=== PATIENT | male | born 1945 | race Caucasian/White ===

== ENCOUNTER 2017-09-02 07:53 | Observation (INO) | payer MEDICARE ==
[~2017-09-02] VITALS: Ht 182.9 cm; Wt 88.5 kg
[~2017-09-02 07:53] MED LIST: IPRATROPIU0.5 MG/3 M NEB; NICOTINE T21 MG/PATC TD; PREDNISONE10 MG PO; ZITHROMAX500 MG PO
--- NOTE | 2017-09-02 07:53 | NUR ---
PT TO ROOM VIA WHEELCHAIR.
--- NOTE | 2017-09-02 08:05 | NUR ---
IV INITIATED AND LABS AND BC X 1 COLLECTED. MD AT BEDSIDE. PATIENT TACHYCARDIC AT 152. SAO2 95% ON ROOM AIR. BILATERAL WHEEZES NOTED UPON AUSCULTATION. PATIENT DENIES ANY PAIN AT THIS TIME AND REPORTS PRODUCTIVE COUGH. PATIENT AWARE OF PLAN OF CARE AND WAIT TIME. CALL CEDENO WITHIN REACH.
[2017-09-02 08:29] LABS: HEMATOCRIT 44.1 % (39.0-50.0); HEMOGLOBIN 15.2 g/dl (14.0-18.0); IMMATURE GRANULOCYTES 0.1 % (0.0-1.0); MEAN CELL VOLUME 94.2 fL CALC (80.0-100.0); MEAN CORPUSCULAR HGB 32.5 pG CALC (26.0-32.0); MEAN CORPUSCULAR HGB CONC 34.5 g/L CALC (32.0-36.0); NEUT# 5.77 thou/uL (1.82-7.42); RED BLOOD COUNT 4.68 mill/uL (4.70-6.10); RED CELL DISTRI WIDTH 12.8 % (11.5-15.5)
[2017-09-02 08:39] LABS: ALBUMIN 4.8 g/dL (3.2-5.0); ALKALINE PHOSPHATASE 89 u/l (38-126); ANION GAP 21 (6-22 (CALC)); BILIRUBIN, TOTAL 0.8 mg/dL (0.0-1.4); BUN 14 mg/dL (8-23); BUN/CREATININE RATIO 23 (12-20 (CALC)); CALCIUM 9.3 mg/dL (8.4-10.2); CARBON DIOXIDE 24 mmol/l (22-30); CHLORIDE 104 mmol/l (95-108); CREATININE 0.6 mg/dL (0.7-1.3); GFR > 60 ML/MIN (>=60 (CALC)); GFR FOR AFR.AMER. > 60 ML/MIN (>=60 (CALC)); GLUCOSE 102 mg/dL (82-115); POTASSIUM 4.3 mmol/l (3.5-5.1); SGOT/AST 62 u/l (19-48); SGPT/ALT 48 u/l (11-66); SODIUM 145 mmol/l (137-146)
[2017-09-02 08:44] LABS: D-DIMER 1.04 mg/L (0.19-0.60); PROTHROMBIN TIME 10.7 SECONDS (9.0-12.5)
--- NOTE | 2017-09-02 08:45 | NUR ---
MONITORED PATIENT RESTING COMFORTBALY IN STRETCHER, REPORTS SOME RELIEF IN SOB. PATIENT SHOWING SINUS RHYTHM ON THE MONITOR WITH OCCANSIONAL PVC'S. SAO2 96% ON ROOM AIR. LIGHTS DIMMED FOR COMFORT. CALL CEDENO WITHIN REACH.
--- NOTE | 2017-09-02 08:55 | NUR ---
NOTIFIED OF ELEVATED LACTIC. AWAITING NEW ORDERS.
--- NOTE | 2017-09-02 09:20 | NUR ---
PATIENT TO BATHROOM VIA WHEELCHAIR. PATIENT TOLERATED WELL REPORTS MINIMAL SHORTNESS OF BREATH. PATIENT REQUESTED TO SIT ON SIDE OF STRETCHER. CALL CEDENO WITHIN REACH, PATIENT AWARE OF WAIT TIME.
--- NOTE | 2017-09-02 10:15 | NUR ---
SAO2 97% ON 2 L NC. MONITOR SHOWING NSR WITH PVC'S AT A RATE OF 87. PATIENT RESTING COMFORTABLY IN STRETCHER WITH HOB ELEVATED AND EYES CLOSED. PATIENT DENIES ANY NEEDS AND IS AWARE OF NEED FOR CT SCAN AND TRANSFER TO [facility] FOR SCAN. CONSENT OBTAINED. CALL CEDENO WITHIN REACH, WILL CONTINUE TO MONITOR.
--- NOTE | 2017-09-02 10:41 | NUR ---
MISBAH AT BEDSIDE, REPORT GIVEN. PATIENT TO CT VIA [place] STRETCHER IN STABLE CONDITION.
--- NOTE | 2017-09-02 14:11 | NUR ---
PATIENT RETURNED FROM CT VIA [place] STRETCHER. PATIENT REQUESTS SOMETHING TO EAT AND DRINK. MEAL TRAY ORDERED. PATIENT DENIES ANY SOB AT THIS TIME. PATIENT SHOWING SINUS RHYTHM ON THE MONITOR AT 86. PATIENT AWARE OF PLAN OF CARE AND WAIT TIME.
--- NOTE | 2017-09-02 15:10 | NUR ---
PATIENT RESTING COMFORTBALY IN STRETCHER, PATIENT DENIES ANY NEEDS AT THIS TIME. MD AT BEDSIDE TO DISCUSS RESUTLS. CALL CEDENO WITHIN REACH.
--- NOTE | 2017-09-02 16:07 | NUR ---
REPORT CALLED TO NAVYA SPANN.
--- NOTE | 2017-09-02 16:07 | NUR ---
REPORT CALLED TO NAVYA SPANN.
--- NOTE | 2017-09-02 16:40 | NUR ---
Admission Note Report Given to: MARIA INES Transported by: X Wheelchair Stretcher Transported with: X Nurse Transporter X Patent IV X O2 X Electric Plater
[2017-09-02 16:50] VITALS: BP 148/84
--- NOTE | 2017-09-02 16:50 | NUR ---
Admission Note Report Given to: MARIA INES Transported by: X Wheelchair Stretcher Transported with: X Nurse Transporter X Patent IV O2 X Title Abstractor
--- NOTE | 2017-09-02 16:50 | NUR ---
PT ARRIVED TO FLOOR VIA STRETCHER ACCOMPANIED BY NAVYA LUCIANO. PT AMBULATES INDEPENDENTLY. PT ORIENTED TO ROOM AND EQUIPMENT. PLAN OF CARE DISCUSSED. PT PROVIDED WITH IS, INSTRUCTED ON USE AND INDICATION. 1250 ML INCENTIVE VOLUME ACHIEVED, GOAL OF 2000ML SET. CALL LIGHT REVIEWED AND IN REACH. PT STATES UNDERSTANDING.
[2017-09-02 19:25] VITALS: BP 141/73
--- NOTE | 2017-09-02 19:36 | NUR ---
AT 1914-TOWER CLEANER CALLED FROM ER TO REPORT THAT PT IS ST, HR 140 W/FREQ PVC'S MEDICATED EARLY WITH LOPRESSOR, VITAL SIGNS TAKEN IN ROOM, HR 86, BP 141/73, TEMP 97.9, SPO2 96% RR IS 20 SLIGHTLY LABORED, ON 2LPM O2 VIA NC, GETS SOB ON EXERTION, INSTRUCTED TO TAKE DEEP BREATHS AND RELAX, VOICES UNDERSTANDING, WILL CONTINU TO MONITOR, CALL CEDENO AT REACH.
--- NOTE | 2017-09-02 19:42 | NUR ---
PT DENIES ANY CHEST PAIN; NITRO PASTE NOTED TO LT UPPER CHEST. SR, HR 86 PER ER MONITORING AT THIS TIME. LUNGS ARE COARSE ON AUSCULTATION WITH DIMINISHED BIBASILAR, ENCOURAGED TO CALL IF NEEDED, SITTING ON SIDE OF BED AT THIS TIME, A/O X3, CALL CEDENO AT REACH, WILL CONTINUE TO MONITOR.
[2017-09-02 20:00] VITALS: BP 142/89
--- NOTE | 2017-09-02 22:33 | NUR ---
RT IN PT ROOM ADMINISTERING A BREATHING TX. RESP ARE SLIGHTLY LABORED, SAFETY MEASURES REMAIN IN PLACE, ENCOURAGED TO CALL IF NEEDED. WILL CONTINUE TO REASSESS.
[2017-09-03 00:10] VITALS: BP 140/79
--- NOTE | 2017-09-03 00:22 | NUR ---
APPEALS WRITER IN PT ROOM DRAWING TROPONIN, PT IS TALKACTIVE, GOOD SENSE OF HUMOR, LAUGHING AND JOKING, NO DISTRESS NOTED, DENIES CHEST PAIN, WILL CONTINUE TO MONITOR. CALL CEDENO AT REACH.
--- NOTE | 2017-09-03 00:26 | NUR ---
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
--- NOTE | 2017-09-03 03:55 | NUR ---
PT SEEMS TO BE SLEEPING WITH EYES CLOSED, VOICES NO COMPLAINTS, RESP ARE UNLABORED, WILL CONTINUE TO MONITOR, CALL CEDENO AT REACH.
[2017-09-03 04:36] VITALS: BP 129/83
--- NOTE | 2017-09-03 05:37 | NUR ---
PT DENIES CHEST PAIN OR SOB, RESP ARE EVEN AND UNLABORED, ENCOURAGED TO CALL IF NEEEDED, REPORTS NO NEEDS AT THIS TIME.
--- NOTE | 2017-09-03 05:45 | NUR ---
INCOME TAX ANALYST IN PT ROOM DRAWING LAB SAMPLES.
[2017-09-03 06:41] LABS: HEMATOCRIT 43.9 % (39.0-50.0); HEMOGLOBIN 14.7 g/dl (14.0-18.0); MEAN CELL VOLUME 96.3 fL CALC (80.0-100.0); MEAN CORPUSCULAR HGB 32.2 pG CALC (26.0-32.0); MEAN CORPUSCULAR HGB CONC 33.5 g/L CALC (32.0-36.0); RED BLOOD COUNT 4.56 mill/uL (4.70-6.10); RED CELL DISTRI WIDTH 12.7 % (11.5-15.5)
[2017-09-03 06:54] LABS: ANION GAP 15 (6-22 (CALC)); BUN 10 mg/dL (8-23); BUN/CREATININE RATIO 17 (12-20 (CALC)); CALCIUM 9.2 mg/dL (8.4-10.2); CARBON DIOXIDE 31 mmol/l (22-30); CHLORIDE 100 mmol/l (95-108); CHOLESTEROL HDL RATIO 3.7 (<4.4 (CALC)); CREATININE 0.6 mg/dL (0.7-1.3); GFR > 60 ML/MIN (>=60 (CALC)); GFR FOR AFR.AMER. > 60 ML/MIN (>=60 (CALC)); GLUCOSE 148 mg/dL (82-115); HDL CHOLESTEROL 62 mg/dL (>=40); POTASSIUM 4.4 mmol/l (3.5-5.1); SODIUM 142 mmol/l (137-146); TOTAL CHOLESTEROL 234 mg/dl (0-199)
[2017-09-03 07:01] LABS: VLDL CHOLESTROL 106 mg/dl (0-38 (CALC))
[2017-09-03 07:04] LABS: TOTAL TRIGLYCERIDES 531 mg/dl (30-149)
--- NOTE | 2017-09-03 07:15 | NUR ---
BEDSIDE REPORT RECEIVED FROM NAVYA ARMANDO. PT.IS SLEEPING AT THIS TIME. CALL LIGHT IS W/IN REACH AND NO S/S OF DISTRESS AT THIS TIME
[2017-09-03 07:45] VITALS: BP 119/73
--- NOTE | 2017-09-03 09:12 | NUR ---
PT.IS SITTING UPRIGHT IN RECLINER AT THIS TIME AND HAS FINISHED EATING BREAKFAST. PT.ASSESSED AND MEDICATED ORDERS PROVIDE. LUNG SOUNDS ARE COURSE LOWER RIGHT LOBE AND ALL OTHERS ARE DIMINISHED. PT.DENIES PAIN OR SOB AT THIS TIME, REPORTS BM OVER NIGHT LAST NIGHT, PT.REPORTS NEEDING TO HAVE A SKIN CANCER REMOVED FROM RIGHT EYE. POC DISCUSSED AND PT/INSTRUCTED TO CALL IF HE NEEDS DUONEB BREATHING TREATMENTS. CALL LIGHT IS W/IN REACH AND PT.INSTRUCTED TO CALL IF ANY NEEDS ARISE.
[2017-09-03 11:06] VITALS: BP 130/83
[2017-09-03] MEDS ORDERED: IPRATROPIU0.5 MG/3 M NEB (11:45)
[2017-09-03] MEDS ORDERED: PREDNISONE10 MG PO (11:45)
[2017-09-03] MEDS ORDERED: LOPRESSOR25 MG PO (11:45)
[2017-09-03] MEDS ORDERED: DOXYCYC MONO100 M2 PO (11:45)
[2017-09-03] MEDS ORDERED: ASPIRIN ADULT L81 M2 PO (11:45)
[2017-09-03] MEDS ORDERED: NEBULIZER COMPRESSOR (11:45)
[2017-09-03] MEDS ORDERED: LIPITOR20 MG PO (13:07)
--- NOTE | 2017-09-03 13:34 | NUR ---
Spoke to pt during discharge med rec. Talked about the indication, use, and side-effects of doxycycline and baby aspirin. Pt was instrcted to wear suncreen while taking doxycycline and to report if experiencing severe diarrhea. Also, talked about the major and minor risk of bleeding.
== END 2017-09-03 13:13 | disposition home or self-care (01) ==
LOC: ED 07:53 → ED-I 15:14 → ED 15:36 → MS2 15:37
PROVIDERS: Emergency Medicine; ADMIT Internal Medicine; ATTEND Internal Medicine
DX: J44.1 Chronic obstructive pulmonary disease with (acute) exacerbation (principal); I47.9 Paroxysmal tachycardia, unspecified; F17.210 Nicotine dependence, cigarettes, uncomplicated; M19.90 Unspecified osteoarthritis, unspecified site; M48.00 Spinal stenosis, site unspecified; R06.02 Shortness of breath
CPT/HCPCS: J1650

== ENCOUNTER 2017-11-11 23:57 | Inpatient (IN) | payer MEDICARE ==
[~2017-11-11] VITALS: Ht 182.9 cm; Wt 95.8 kg
[~2017-11-11 23:57] MED LIST changes: +ASPIRIN ADULT L81 M2 PO; +DOXYCYC MONO100 M2 PO; +FLEXERIL PO; +LIPITOR20 MG PO; +LOPRESSOR25 MG PO; +LORTAB 1010 MG PO; +NEBULIZER COMPRESSOR
[2017-11-12] VITALS (20 sets, daily range): BP systolic 95–120; BP diastolic 52–88
[2017-11-12 00:44] LABS: HEMATOCRIT 44.3 % (39.0-50.0); HEMOGLOBIN 14.4 g/dl (14.0-18.0); IMMATURE GRANULOCYTES 0.2 % (0.0-1.0); MEAN CELL VOLUME 94.7 fL CALC (80.0-100.0); MEAN CORPUSCULAR HGB 30.8 pG CALC (26.0-32.0); MEAN CORPUSCULAR HGB CONC 32.5 g/L CALC (32.0-36.0); NEUT# 5.61 thou/uL (1.82-7.42); RED BLOOD COUNT 4.68 mill/uL (4.70-6.10); RED CELL DISTRI WIDTH 13.3 % (11.5-15.5)
[2017-11-12 00:53] LABS: ANION GAP 16 (6-22 (CALC)); BUN 14 mg/dL (8-23); BUN/CREATININE RATIO 17 (12-20 (CALC)); CARBON DIOXIDE 26 mmol/l (22-30); CHLORIDE 104 mmol/l (95-108); CREATININE 0.8 mg/dL (0.7-1.3); GFR > 60 ML/MIN (>=60 (CALC)); GFR FOR AFR.AMER. > 60 ML/MIN (>=60 (CALC)); SODIUM 142 mmol/l (137-146)
[2017-11-12 01:23] LABS: TSH, 3RD GENERATION 6.17 uIU/mL (0.47 - 4.68)
[2017-11-12 01:33] LABS: INFLUENZA A NONE DETECTED (NONE DETECT); INFLUENZA B NONE DETECTED (NONE DETECT)
[2017-11-13] VITALS (13 sets, daily range): BP systolic 94–140; BP diastolic 51–76
[2017-11-13 05:35] LABS: HEMATOCRIT 44.8 % (39.0-50.0); HEMOGLOBIN 14.4 g/dl (14.0-18.0); MEAN CELL VOLUME 96.1 fL CALC (80.0-100.0); MEAN CORPUSCULAR HGB 30.9 pG CALC (26.0-32.0); MEAN CORPUSCULAR HGB CONC 32.1 g/L CALC (32.0-36.0); RED BLOOD COUNT 4.66 mill/uL (4.70-6.10); RED CELL DISTRI WIDTH 13.5 % (11.5-15.5)
[2017-11-13 06:08] LABS: ANION GAP 24 (6-22 (CALC)); BUN 18 mg/dL (8-23); BUN/CREATININE RATIO 24 (12-20 (CALC)); CARBON DIOXIDE 20 mmol/l (22-30); CHLORIDE 105 mmol/l (95-108); CREATININE 0.7 mg/dL (0.7-1.3); GFR > 60 ML/MIN (>=60 (CALC)); GFR FOR AFR.AMER. > 60 ML/MIN (>=60 (CALC)); POTASSIUM 4.2 mmol/l (3.5-5.1); SODIUM 144 mmol/l (137-146)
[2017-11-14] VITALS (8 sets, daily range): BP systolic 90–119; BP diastolic 42–80
[2017-11-14 05:41] LABS: HEMATOCRIT 42.6 % (39.0-50.0); HEMOGLOBIN 13.7 g/dl (14.0-18.0); MEAN CELL VOLUME 97.5 fL CALC (80.0-100.0); MEAN CORPUSCULAR HGB 31.4 pG CALC (26.0-32.0); MEAN CORPUSCULAR HGB CONC 32.2 g/L CALC (32.0-36.0); RED BLOOD COUNT 4.37 mill/uL (4.70-6.10); RED CELL DISTRI WIDTH 13.6 % (11.5-15.5)
[2017-11-14 06:02] LABS: ANION GAP 19 (6-22 (CALC)); BUN 19 mg/dL (8-23); BUN/CREATININE RATIO 24 (12-20 (CALC)); CARBON DIOXIDE 25 mmol/l (22-30); CHLORIDE 104 mmol/l (95-108); CREATININE 0.8 mg/dL (0.7-1.3); GFR > 60 ML/MIN (>=60 (CALC)); GFR FOR AFR.AMER. > 60 ML/MIN (>=60 (CALC)); POTASSIUM 4.5 mmol/l (3.5-5.1); SODIUM 144 mmol/l (137-146)
[2017-11-14] MEDS ORDERED: PREDNISONE10 MG PO (13:48)
[2017-11-14] MEDS ORDERED: IPRATROPIU0.5 MG/3 M NEB (13:48)
[2017-11-14] MEDS ORDERED: ELIQUIS5 MG PO (13:48)
[2017-11-14] MEDS ORDERED: ZITHROMAX250 MG PO (13:48)
[2017-11-14] MEDS ORDERED: CORDARONE/200 MG/TAB PO (13:48)
== END 2017-11-14 15:45 | disposition home or self-care (01) | DRG 191 ==
LOC: ED 23:57 → ED-I 11-12 01:00 → ED 11-12 01:38 → ICU 11-12 01:39
PROVIDERS: Family Medicine; ADMIT Internal Medicine; ATTEND Internal Medicine
DX: J44.1 Chronic obstructive pulmonary disease with (acute) exacerbation (principal); I47.2 Ventricular tachycardia; I48.0 Paroxysmal atrial fibrillation; I44.7 Left bundle-branch block, unspecified; R09.02 Hypoxemia; F17.210 Nicotine dependence, cigarettes, uncomplicated; M48.00 Spinal stenosis, site unspecified; M19.90 Unspecified osteoarthritis, unspecified site; F12.90 Cannabis use, unspecified, uncomplicated; Z91.14 Patient's other noncompliance with medication regimen; F10.10 Alcohol abuse, uncomplicated
CPT/HCPCS: J1160

== ENCOUNTER 2017-12-18 14:25 | Emergency (ER) | payer MEDICARE ==
[~2017-12-18] VITALS: Ht 182.9 cm; Wt 95.0 kg
[~2017-12-18 14:25] MED LIST changes: +CORDARONE/200 MG/TAB PO; +ELIQUIS5 MG PO; +ZITHROMAX250 MG PO
[2017-12-18] MEDS ORDERED: SPIRONOLACT25 MG PO (14:47)
[2017-12-18] MEDS ORDERED: ATORVASTATIN CA40 MG PO (14:48)
[2017-12-18] MEDS ORDERED: COUMADIN5 MG PO (14:49)
[2017-12-18] MEDS ORDERED: CARVEDILOL3.125 MG PO (14:49)
[2017-12-18 15:23] LABS: HEMATOCRIT 43.6 % (39.0-50.0); HEMOGLOBIN 14.4 g/dl (14.0-18.0); IMMATURE GRANULOCYTES 0.4 % (0.0-1.0); MEAN CORPUSCULAR HGB 30.3 pG CALC (26.0-32.0); NEUT# 6.98 thou/uL (1.82-7.42); RED BLOOD COUNT 4.76 mill/uL (4.70-6.10); RED CELL DISTRI WIDTH 14.4 % (11.5-15.5)
[2017-12-18 15:35] LABS: MEAN CELL VOLUME 91.6 fL CALC (80.0-100.0)
[2017-12-18 15:43] LABS: ALBUMIN 3.9 g/dL (3.2-5.0); ALKALINE PHOSPHATASE 86 u/l (38-126); ANION GAP 19 (6-22 (CALC)); BILIRUBIN, TOTAL 0.9 mg/dL (0.0-1.4); BUN 13 mg/dL (8-23); BUN/CREATININE RATIO 21 (12-20 (CALC)); CARBON DIOXIDE 25 mmol/l (22-30); CHLORIDE 98 mmol/l (95-108); CREATININE 0.6 mg/dL (0.7-1.3); GFR > 60 ML/MIN (>=60 (CALC)); GFR FOR AFR.AMER. > 60 ML/MIN (>=60 (CALC)); POTASSIUM 4.8 mmol/l (3.5-5.1); SGOT/AST 27 u/l (19-48); SGPT/ALT 36 u/l (11-66); SODIUM 138 mmol/l (137-146); TOTAL PROTEIN 6.4 g/dL (6.3-8.2)
[2017-12-18] MEDS ORDERED: ZPAK PO (16:21)
[2017-12-18] MEDS ORDERED: PREDNISONE50 MG PO (16:21)
[2017-12-18] MEDS ORDERED: PROAIR HFA108 MCG/AC PO (16:21)
[2017-12-18 16:40] VITALS: BP 103/76
== END 2017-12-18 16:40 | disposition left against medical advice (07) ==
LOC: ED 14:25
PROVIDERS: Family Medicine
DX: J44.1 Chronic obstructive pulmonary disease with (acute) exacerbation (principal); R06.02 Shortness of breath; R05 Cough; F17.210 Nicotine dependence, cigarettes, uncomplicated; R00.0 Tachycardia, unspecified; Z91.19 Patient's noncompliance with other medical treatment and regimen

== ENCOUNTER 2017-12-31 19:33 | Inpatient (IN) | payer MEDICARE ==
[~2017-12-31] VITALS: Ht 182.9 cm; Wt 97.1 kg
[~2017-12-31 19:33] MED LIST changes: +ATORVASTATIN CA40 MG PO; +CARVEDILOL3.125 MG PO; +COUMADIN5 MG PO; +PREDNISONE50 MG PO; +PROAIR HFA108 MCG/AC PO; +SPIRONOLACT25 MG PO; +ZPAK PO
[2017-12-31 20:36] LABS: HEMATOCRIT 44.9 % (39.0-50.0); IMMATURE GRANULOCYTES 0.4 % (0.0-1.0); MEAN CELL VOLUME 93.9 fL CALC (80.0-100.0); MEAN CORPUSCULAR HGB 29.3 pG CALC (26.0-32.0); MEAN CORPUSCULAR HGB CONC 31.2 g/L CALC (32.0-36.0); NEUT# 9.12 thou/uL (1.82-7.42); RED BLOOD COUNT 4.78 mill/uL (4.70-6.10); RED CELL DISTRI WIDTH 15.3 % (11.5-15.5)
[2017-12-31 20:51] LABS: INTERNATIONAL NORMALIZED RATIO 1.1 RATIO (0.7-1.3)
[2017-12-31 20:54] LABS: ALBUMIN 3.8 g/dL (3.2-5.0); ALKALINE PHOSPHATASE 93 u/l (38-126); ANION GAP 18 (6-22 (CALC)); BILIRUBIN, TOTAL 0.9 mg/dL (0.0-1.4); BUN 17 mg/dL (8-23); BUN/CREATININE RATIO 21 (12-20 (CALC)); CARBON DIOXIDE 28 mmol/l (22-30); CHLORIDE 103 mmol/l (95-108); CREATININE 0.8 mg/dL (0.7-1.3); GFR > 60 ML/MIN (>=60 (CALC)); GFR FOR AFR.AMER. > 60 ML/MIN (>=60 (CALC)); POTASSIUM 4.4 mmol/l (3.5-5.1); SGOT/AST 23 u/l (19-48); SGPT/ALT 33 u/l (11-66); SODIUM 144 mmol/l (137-146); TOTAL PROTEIN 6.9 g/dL (6.3-8.2)
[2017-12-31 21:06] LABS: MYOGLOBIN 68 ng/mL (0 - 121)
[2017-12-31 23:30] VITALS: BP 98/56
[2017-12-31 23:45] VITALS: BP 109/72
[2018-01-01] VITALS (13 sets, daily range): BP systolic 87–119; BP diastolic 65–80
[2018-01-01 06:11] LABS: URINE BILIRUBIN - DIPSTICK NEGATIVE (NEGATIVE); URINE BLOOD DIPSTICK NEGATIVE (NEGATIVE); URINE COLOR YELLOW; URINE GLUCOSE - DIPSTICK 500 mg/dL (NEGATIVE); URINE KETONE NEGATIVE (NEGATIVE); URINE LEUK ESTERASE NEGATIVE (NEGATIVE); URINE NITRITE - DIPSTICK NEGATIVE (Negative); URINE PROTEIN - DIPSTICK NEGATIVE (NEG-TRACE); URINE SPECIFIC GRAVITY 1.025; URINE UROBILINOGEN - DIPSTICK 0.2 E.U./dL (0.2)
[2018-01-01 06:13] LABS: URINE CLARITY SL CLOUDY
[2018-01-01] MEDS ORDERED: LIPITOR40 M1 PO (06:39)
[2018-01-01] MEDS ORDERED: SPIRONOLACTONE25 MG PO (06:39)
[2018-01-01] MEDS ORDERED: CARVEDILOL3.125 MG PO (06:40)
[2018-01-01] MEDS ORDERED: WARFARIN SODIU2.5 MG PO (06:40)
[2018-01-01] MEDS ORDERED: DUONEB IN (06:41)
[2018-01-01 17:46] LABS: HEMATOCRIT 42.9 % (39.0-50.0); HEMOGLOBIN 13.4 g/dl (14.0-18.0); IMMATURE GRANULOCYTES 0.3 % (0.0-1.0); MEAN CELL VOLUME 95.5 fL CALC (80.0-100.0); MEAN CORPUSCULAR HGB 29.8 pG CALC (26.0-32.0); MEAN CORPUSCULAR HGB CONC 31.2 g/L CALC (32.0-36.0); NEUT# 16.23 thou/uL (1.82-7.42); RED BLOOD COUNT 4.49 mill/uL (4.70-6.10)
[2018-01-01 18:05] LABS: ALBUMIN 3.6 g/dL (3.2-5.0); ALKALINE PHOSPHATASE 79 u/l (38-126); ANION GAP 18 (6-22 (CALC)); BILIRUBIN, TOTAL 0.6 mg/dL (0.0-1.4); BUN 21 mg/dL (8-23); BUN/CREATININE RATIO 25 (12-20 (CALC)); CARBON DIOXIDE 27 mmol/l (22-30); CHLORIDE 103 mmol/l (95-108); CREATININE 0.8 mg/dL (0.7-1.3); GFR > 60 ML/MIN (>=60 (CALC)); GFR FOR AFR.AMER. > 60 ML/MIN (>=60 (CALC)); POTASSIUM 4.5 mmol/l (3.5-5.1); SGOT/AST 19 u/l (19-48); SGPT/ALT 33 u/l (11-66); SODIUM 144 mmol/l (137-146); TOTAL PROTEIN 6.8 g/dL (6.3-8.2)
[2018-01-01 18:06] LABS: INTERNATIONAL NORMALIZED RATIO 1.1 RATIO (0.7-1.3); PROTHROMBIN TIME 12.1 SECONDS (9.0-12.5)
[2018-01-01 18:51] LABS: INFLUENZA A NONE DETECTED (NONE DETECT); INFLUENZA B NONE DETECTED (NONE DETECT)
[2018-01-02] VITALS (23 sets, daily range): BP systolic 84–115; BP diastolic 61–87
[2018-01-02 04:27] LABS: HEMATOCRIT 41.9 % (39.0-50.0); HEMOGLOBIN 13.2 g/dl (14.0-18.0); IMMATURE GRANULOCYTES 0.4 % (0.0-1.0); MEAN CELL VOLUME 94.2 fL CALC (80.0-100.0); MEAN CORPUSCULAR HGB 29.7 pG CALC (26.0-32.0); MEAN CORPUSCULAR HGB CONC 31.5 g/L CALC (32.0-36.0); NEUT# 18.99 thou/uL (1.82-7.42); RED BLOOD COUNT 4.45 mill/uL (4.70-6.10); RED CELL DISTRI WIDTH 15.1 % (11.5-15.5)
[2018-01-02 04:44] LABS: MAGNESIUM 1.9 mg/dL (1.6-2.3)
[2018-01-02 04:45] LABS: ALBUMIN 3.6 g/dL (3.2-5.0); ALKALINE PHOSPHATASE 73 u/l (38-126); ANION GAP 18 (6-22 (CALC)); BILIRUBIN, TOTAL 0.6 mg/dL (0.0-1.4); BUN 24 mg/dL (8-23); BUN/CREATININE RATIO 31 (12-20 (CALC)); CARBON DIOXIDE 26 mmol/l (22-30); CHLORIDE 102 mmol/l (95-108); CREATININE 0.8 mg/dL (0.7-1.3); GFR > 60 ML/MIN (>=60 (CALC)); GFR FOR AFR.AMER. > 60 ML/MIN (>=60 (CALC)); POTASSIUM 4.5 mmol/l (3.5-5.1); SGOT/AST 18 u/l (19-48); SGPT/ALT 32 u/l (11-66); SODIUM 142 mmol/l (137-146); TOTAL PROTEIN 6.7 g/dL (6.3-8.2)
[2018-01-03] VITALS (13 sets, daily range): BP systolic 94–108; BP diastolic 63–85
[2018-01-03 07:45] LABS: HEMATOCRIT 43.3 % (39.0-50.0); HEMOGLOBIN 13.6 g/dl (14.0-18.0); MEAN CELL VOLUME 94.3 fL CALC (80.0-100.0); MEAN CORPUSCULAR HGB 29.6 pG CALC (26.0-32.0); MEAN CORPUSCULAR HGB CONC 31.4 g/L CALC (32.0-36.0); RED BLOOD COUNT 4.59 mill/uL (4.70-6.10); RED CELL DISTRI WIDTH 15.4 % (11.5-15.5)
[2018-01-03 08:03] LABS: ANION GAP 19 (6-22 (CALC)); BUN 27 mg/dL (8-23); BUN/CREATININE RATIO 35 (12-20 (CALC)); CARBON DIOXIDE 30 mmol/l (22-30); CHLORIDE 96 mmol/l (95-108); CREATININE 0.8 mg/dL (0.7-1.3); GFR > 60 ML/MIN (>=60 (CALC)); GFR FOR AFR.AMER. > 60 ML/MIN (>=60 (CALC)); POTASSIUM 4.3 mmol/l (3.5-5.1); SODIUM 140 mmol/l (137-146)
[2018-01-04] VITALS (10 sets, daily range): BP systolic 82–103; BP diastolic 65–80
[2018-01-04 04:31] LABS: HEMATOCRIT 44.3 % (39.0-50.0); HEMOGLOBIN 13.7 g/dl (14.0-18.0); MEAN CELL VOLUME 95.1 fL CALC (80.0-100.0); MEAN CORPUSCULAR HGB 29.4 pG CALC (26.0-32.0); MEAN CORPUSCULAR HGB CONC 30.9 g/L CALC (32.0-36.0); RED BLOOD COUNT 4.66 mill/uL (4.70-6.10); RED CELL DISTRI WIDTH 15.4 % (11.5-15.5)
[2018-01-04 04:43] LABS: ANION GAP 17 (6-22 (CALC)); BUN 36 mg/dL (8-23); BUN/CREATININE RATIO 39 (12-20 (CALC)); CARBON DIOXIDE 30 mmol/l (22-30); CHLORIDE 97 mmol/l (95-108); CREATININE 0.9 mg/dL (0.7-1.3); GFR > 60 ML/MIN (>=60 (CALC)); GFR FOR AFR.AMER. > 60 ML/MIN (>=60 (CALC)); POTASSIUM 4.2 mmol/l (3.5-5.1); SODIUM 141 mmol/l (137-146)
[2018-01-04 05:05] LABS: INTERNATIONAL NORMALIZED RATIO 1.1 RATIO (0.7-1.3); PROTHROMBIN TIME 12.7 SECONDS (9.0-12.5)
[2018-01-05] VITALS (10 sets, daily range): BP systolic 80–185; BP diastolic 57–79
[2018-01-05 04:55] LABS: INTERNATIONAL NORMALIZED RATIO 1.4 RATIO (0.7-1.3)
== END 2018-01-05 17:10 | disposition short-term general hospital (02) | DRG 190 ==
LOC: ED 19:33 → ED-I 22:38 → ED 22:52 → ICU 22:53
PROVIDERS: Emergency Medicine; Hospitalist; Internal Medicine; ADMIT Internal Medicine; ATTEND Internal Medicine
DX: J44.1 Chronic obstructive pulmonary disease with (acute) exacerbation (principal); I50.23 Acute on chronic systolic (congestive) heart failure; I27.20 Pulmonary hypertension, unspecified; I42.8 Other cardiomyopathies; I48.92 Unspecified atrial flutter; I11.0 Hypertensive heart disease with heart failure; I48.0 Paroxysmal atrial fibrillation; M19.90 Unspecified osteoarthritis, unspecified site; M48.00 Spinal stenosis, site unspecified; F17.210 Nicotine dependence, cigarettes, uncomplicated; F10.10 Alcohol abuse, uncomplicated; I44.7 Left bundle-branch block, unspecified; F12.90 Cannabis use, unspecified, uncomplicated; Z87.01 Personal history of pneumonia (recurrent); Z91.14 Patient's other noncompliance with medication regimen
CPT/HCPCS: J0282; J1160; J1650